=== PATIENT | female | born 1995 | race Caucasian/White ===

== ENCOUNTER 2016-04-10 01:02 | Emergency (ER) | payer OTHER ==
[2016-04-10 01:09] VITALS: TEMP 97.5
--- NOTE | 2016-04-10 01:26 | EDPHY ---
H & P Stated Complaint: etoh si - Personal History Current Tetanus/Diphtheria Vaccine: Yes Current Tetanus Diphtheria and Acellular Pertussis (TDAP): Yes - Medical/Surgical History Hx Asthma: Yes Hx Chronic Respiratory Disease: No Hx Diabetes: No Hx Cardiac Disease: No Hx Renal Disease: No Hx Cirrhosis: No Hx Alcoholism: No Hx HIV/AIDS: No Hx Splenectomy or Spleen Trauma: No Other PMH: fx foot - Social History Smoking Status: Never smoked Time Seen by Provider: 04/10/16 01:14 HPI/ROS: CHIEF COMPLAINT: "I'm a loser" HISTORY OF PRESENT ILLNESS: 21-year-old female arrives via private vehicle, was dropped off by her friends after she was drinking alcohol and started making statements of suicidality stating that she was going to jump off the roof. She was EN route to go up the elevator when her friends recommend she come to the ER.. When I interview her she is crying stating that she "has nothing to live for". She denies self-injury. Does not own a gun. Denies suicide attempt REVIEW OF SYSTEMS: A ten point review of systems was performed and is negative with the exception of the items mentioned in the HPI PAST MEDICAL & SURGICAL HISTORY: No pertinent medical or surgical history SOCIAL HISTORY: positive alcohol use PHYSICAL EXAM (Prior to examination, patient consented to physical exam, hands were washed and my usual and customary physical exam procedures followed) 1) GENERAL: Well-developed, well-nourished, alert and oriented. She is crying inconsolably. 2) HEAD: Normocephalic, atraumatic 3) HEENT: Pupils equal, round, reactive to light bilaterally. 4) NECK: Full range of motion, no meningeal signs. 5) LUNGS: Clear auscultation bilaterally 6) HEART: Regular rate and rhythm, no murmur, no heave, no gallop. 7) ABDOMEN: No guarding, no rebound, no focal tenderness, 8) MUSCULOSKELETAL: No peripheral edema or discoloration. 9) BACK: No CVA tenderness 10) SKIN: No rash, no petechiae. 11) Psychiatric: Patient is oriented X 3, she is crying DIFFERENTIAL DIAGNOSIS: in no particular order including but not limited to depression, suicidal ideation, homicidal ideation (Faiza Cortes Faviola) Constitutional: Initial Vital Signs Temperature (C) 36.4 C 04/10/16 01:05 Heart Rate 125 H 04/10/16 01:05 Respiratory Rate 20 04/10/16 01:05 Blood Pressure 116/76 04/10/16 01:05 O2 Sat (%) 94 04/10/16 01:05 O2 Delivery Mode Room Air Allergies/Adverse Reactions: pineapple Allergy (Verified 04/10/16 01:04) Home Medications: Medication Instructions Recorded Nexplanon 04/10/16 Medical Decision Making ED Course/Re-evaluation: 0130 Care assumed by me from LIYA Cortes pending mental health evaluation. [address] Pt signed out to Dr Walker pending Mental Health evaluation. (Des Anand) 1:30 a.m.: Patient placed on emergency department detainer, she is intoxicated , I do not think she is capable of making medical decisions. Plan will be obtaining diagnostic studies, allowing patient to sober and then have mental health retail pricing coordinator patient 2 am: Care turned over to Dr Anand (Faiza Cortes Faviola) Other Provider: Care assumed at 0645, had psych evaluation and at 728 is not suicidal and stable for DC. Recommendation of mental health retail pricing coordinator and Dr. Jabari Mason consulting psychiatrist is to discharge her with outpatient follow-up. ( Nik Walker) - Data Points Laboratory Results: Laboratory Results 04/10/16 01:40 04/10/16 01:40 Medications Given: Discontinued Medications Ibuprofen (Motrin) 400 mg PO EDNOW ONE Stop: 04/10/16 02:24 Last Admin: 04/10/16 02:23 Dose: 400 mg Departure - Departure Disposition: Home, Routine, Self-Care Clinical Impression: Alcohol intoxication Qualifiers: Complication of substance-induced condition: uncomplicated Qualified Code(s): F10.120 - Alcohol abuse with intoxication, uncomplicated Condition: Good Instructions: Alcohol Intoxication (ED) Referrals: Patient,NotPresent [Unknown] - As per Instructions [facility] [Clinic] - As per Instructions Tyrese Harvey MD [Medical Doctor] - As per Instructions
[2016-04-10 01:45] LABS: % IMMATURE GRANULYOCYTES 0.1 % (0.0-1.1); ABSOLUTE IMMATURE GRANULOCYTES 0.01 10^3/uL (0.00-0.10); ADD DIFF? NO; ADD MORPH? NO; ADD SCAN? NO; ATYPICAL LYMPHOCYTE FLAG 20 (0-99); FRAGMENT RBC FLAG 0 (0-99); HEMATOCRIT 46.1 % (38.0-47.0); HEMOGLOBIN 15.1 g/dL (12.6-16.3); LEFT SHIFT FLG 0 (0-99); LIPEMIA HEMOLYSIS FLAG 80 (0-99); MEAN CELL HEMOGLOBIN 28.7 pg (27.9-34.1); MEAN CELL HEMOGLOBIN CONCENTR. 32.8 g/dL (32.4-36.7); MEAN CELL VOLUME 87.6 fL (81.5-99.8); MEAN PLATELET VOLUME 10.7 fL (8.7-11.7); PLATELET CLUMPS FLAG 10 (0-99); PLATELET COUNT 288 10^3/uL (150-400); RED BLOOD CELL COUNT 5.26 10^6/uL (4.18-5.33)
[2016-04-10 02:00] LABS: ANION GAP 10 mEq/L (8-16); CALCIUM 9.5 mg/dL (8.5-10.4); CARBON DIOXIDE 22 mEq/l (22-31); CHLORIDE 117 mEq/L (97-110); CREATININE 0.7 mg/dL (0.6-1.0); ETHANOL SERUM 153 mg/dL (0-10); GLOMERULAR FILTRATION RATE > 60; GLUCOSE 99 mg/dL (70-100); POTASSIUM 3.5 mEq/L (3.5-5.2); SALICYLATE < 1.0 mg/dL (2.0-20.0); SODIUM 149 mEq/L (134-144)
[2016-04-10] MEDS ORDERED: IBUPROFEN 200 MG TAB PO ONE ×2 (02:21→02:23)
[2016-04-10 07:47] VITALS: BP 106/61; PULSE 75; RESP 16; O2SAT 96
== END 2016-04-10 07:57 | disposition home or self-care (01) ==
LOC: EDBD 01:02 → EEVIPCON 01:02
DX: F10.120 Alcohol abuse with intoxication, uncomplicated (principal); J45.909 Unspecified asthma, uncomplicated
CPT/HCPCS: 80305; G0480